=== PATIENT | male | born 1950 | race Caucasian/White ===

== ENCOUNTER → 2016-10-26 | Outpatient (CLI) | payer MEDICARE, OTHER ==
[~2016-10-26] MED LIST: ACET50TAOT PO; AMBI10TA PO; BALS75CA PO; CALC500T36 PO; CIAL5TAB PO; CIPR500T89 PO; COUM1TAB17 PO; COUM7.5T PO; PERC5TAB6 PO; TYLE325T5 PO; VITA-130 PO
== END ==
LOC: M LAB 09:05
PROVIDERS: ATTEND Urology
DX: C61 Malignant neoplasm of prostate (principal)

== ENCOUNTER → 2016-11-03 | Outpatient (CLI) | payer MEDICARE | LOC: M ADAMS 13:12 | PROVIDERS: ATTEND Urology | DX: N40.1 Benign prostatic hyperplasia with lower urinary tract symptoms (principal) ==

== ENCOUNTER → 2017-03-19 | Outpatient (CLI) | payer MEDICARE ==
[~2017-03-19] MED LIST changes: +CIPR-249 PO; -CIPR500T89 PO; +PERC5TAB12 PO; -PERC5TAB6 PO; -VITA-130 PO; +VITA500T PO
== END ==
LOC: M WUC 15:54
PROVIDERS: ATTEND Urology
DX: N40.1 Benign prostatic hyperplasia with lower urinary tract symptoms (principal)

== ENCOUNTER → 2017-10-19 | Outpatient (REF) | payer MEDICARE ==
[2017-10-19 20:09] LABS: PROSTATIC SPECIFIC AG MONITOR 0.23 NG/ML (< 4.0)
== END ==
LOC: M LABDRWAD 19:12
DX: C61 Malignant neoplasm of prostate (principal)
CPT/HCPCS: 84153

== ENCOUNTER → 2018-04-19 | Outpatient (REF) | payer MEDICARE ==
[2018-04-19 14:03] LABS: PROSTATIC SPECIFIC AG MONITOR 0.32 NG/ML (< 4.0)
== END ==
LOC: M LABDRWAD 12:55
DX: R97.20 Elevated prostate specific antigen [PSA] (principal)

== ENCOUNTER → 2018-04-19 | Outpatient (REF) | payer MEDICARE ==
[2018-04-19 13:55] LABS: BASO % 0.7 % (0.0-1.0); EOS # 0.2 10^3/uL (0.0-0.50); EOS % 3.6 % (0.0-3.0); HEMATOCRIT 44.4 % (42.0-52.0); HEMOGLOBIN 14.8 g/dl (13.5-17.5); IMMATURE GRANULOCYTE % 0.7 % (0-3.0); LYMPH # 1.2 10^3/uL (1.5-4.5); LYMPH % 26.5 % (24.0-44.0); MEAN CORPUSCULAR HEMOGLOBIN 30.9 pg (27.0-33.0); MEAN CORPUSCULAR HGB CONC 33.3 g/dl (32.0-36.5); MEAN CORPUSCULAR VOLUME 92.7 fl (80.0-96.0); MONO # 0.4 10^3/uL (0.0-0.8); NEUTROPHILS # 2.7 10^3/uL (1.8-7.7); NEUTROPHILS % 59.5 % (36.0-66.0); PLATELET COUNT, AUTOMATED 138 10^3/uL (150-450); RED BLOOD COUNT 4.79 10^6/uL (4.30-6.10); RED CELL DISTRIBUTION WIDTH 12.3 % (11.5-14.5); WHITE BLOOD COUNT 4.5 10^3/uL (4.0-10.0)
[2018-04-19 14:03] LABS: ALBUMIN 3.7 GM/DL (3.2-5.2); ALBUMIN/GLOBULIN RATIO 1.54 (1.00-1.93); ALKALINE PHOSPHATASE 47 U/L (45-117); ALT/SGPT 20 U/L (12-78); ANION GAP 6 MEQ/L (8-16); AST/SGOT 15 U/L (7-37); BILIRUBIN,TOTAL 0.6 MG/DL (0.2-1.0); BLOOD UREA NITROGEN 22 MG/DL (7-18); CALCIUM LEVEL 8.2 MG/DL (8.8-10.2); CARBON DIOXIDE LEVEL 30 MEQ/L (21-32); CHLORIDE LEVEL 109 MEQ/L (98-107); CHOLESTEROL LEVEL 185 MG/DL (<200); CHOLESTEROL RISK RATIO 3.135 (<5); GLOMERULAR FILTRATION RATE > 60.0 (>49); GLUCOSE, FASTING 88 MG/DL (70-100); HDL CHOLESTEROL 59 MG/DL (>40); LDL CHOLESTEROL 112 MG/DL (<100); NON-HDL-C 126 MG/DL; POTASSIUM SERUM 4.4 MEQ/L (3.5-5.1); SODIUM LEVEL 145 MEQ/L (136-145); TOTAL PROTEIN 6.1 GM/DL (6.4-8.2); TRIGLYCERIDES LEVEL 71 MG/DL (<150)
== END ==
LOC: M LABDRWAD 12:52
DX: Z00.00 Encounter for general adult medical examination without abnormal findings (principal); R97.20 Elevated prostate specific antigen [PSA]; Z51.81 Encounter for therapeutic drug level monitoring; Z79.899 Other long term (current) drug therapy
CPT/HCPCS: 80053

== ENCOUNTER 2018-05-31 07:51 | Day surgery (SDC) | payer MEDICARE ==
[2018-05-31] MEDS: NS 1,000 ML IV (06:30)
[2018-05-31] MEDS ORDERED: PROPOFOL 200 MG/20 ML VIAL As Ordered ×2 (08:06→08:36)
[2018-05-31] MEDS ORDERED: LIDOCAINE 2% INJ 100 MG/5 ML SDV (FOR ANES.) As Ordered (08:07)
== END 2018-05-31 09:26 | disposition home or self-care (01) ==
LOC: M OPP 07:51
DX: K63.5 Polyp of colon (principal); K64.0 First degree hemorrhoids; K57.30 Diverticulosis of large intestine without perforation or abscess without bleeding; Z88.0 Allergy status to penicillin; Z88.2 Allergy status to sulfonamides; Z86.19 Personal history of other infectious and parasitic diseases; Z98.890 Other specified postprocedural states; Z79.899 Other long term (current) drug therapy
CPT/HCPCS: 45380

== ENCOUNTER → 2018-12-16 | Outpatient (REF) | payer MEDICARE ==
[~2018-12-16] MED LIST changes: +ACET500T15 PO; -ACET50TAOT PO; +CALC12504 PO; -CALC500T36 PO; +FLUO1CRE4 TOP; +PROP10TA56 PO
== END ==
LOC: M LABDRWAD 13:54
PROVIDERS: ATTEND Urology
DX: Z85.46 Personal history of malignant neoplasm of prostate (principal)

== ENCOUNTER → 2019-06-12 | Outpatient (CLI) | payer MEDICARE ==
[~2019-06-12] MED LIST changes: -CALC12504 PO; +CALC500T61 PO
== END ==
LOC: M LAB 07:52
PROVIDERS: ATTEND Urology
DX: C61 Malignant neoplasm of prostate (principal)

== ENCOUNTER → 2020-01-02 | Outpatient (REF) | payer MEDICARE ==
[~2020-01-02] MED LIST changes: -COUM7.5T PO; +COUM7.5T6 PO; +VITA-243 PO; -VITA500T PO
== END ==
LOC: M SFHCADAM 13:11
PROVIDERS: ATTEND Urology
DX: C61 Malignant neoplasm of prostate (principal)

== ENCOUNTER → 2020-06-14 | Outpatient (CLI) | payer MEDICARE | LOC: M PLALAB 10:51 | PROVIDERS: ATTEND Urology | DX: C61 Malignant neoplasm of prostate (principal) ==

== ENCOUNTER → 2020-06-21 | Outpatient (CLI) | payer SELFPAY | LOC: M LABSMTC 13:14 | PROVIDERS: ATTEND Pediatrics | DX: Z20.828 Contact with and (suspected) exposure to other viral communicable diseases (principal) ==

== ENCOUNTER → 2021-02-25 | Outpatient (CLI) | payer MEDICARE | LOC: M PLALAB 14:11 | PROVIDERS: ATTEND Urology | DX: C61 Malignant neoplasm of prostate (principal) ==

== ENCOUNTER → 2021-04-01 | Outpatient (CLI) | payer MEDICARE ==
--- NOTE | 2021-04-01 12:18 | REP ---
INDICATION: LT HIP PRESENCE PAINFUL PROSTHESIS/TENDONITIS BURS. COMPARISON: Comparison radiographs are from July 23, 2015 peer TECHNIQUE: . axial, coronal and sagittal imaging planes utilized. T1 and T2 weighted scans are included. The study includes coronal T1 and fat sat T2 images of both hips. Soft worse metallic field artifact suppression was utilized. Smaller [id number] T2 images were performed without fat saturation to help minimize the artifact as well. FINDINGS: Despite the above measures, there is considerable metallic field susceptibility artifact emanating from the metallic components of the left hip prosthesis. This obscures the immediately adjacent tissue visualization to some degree on all sequences. I do not see evidence of a periarticular fluid collection or mass. The visualized bony pelvic ring shows normal cortical and medullary T1-T2 weighted signal. No sacral lesion is seen. No evidence of a stress fracture in their visualized bony structures. SI joints and symphysis pubis are normally aligned. The right hip shows minimal acetabular spurring superiorly. No right hip effusion is seen. No pelvic mass or adenopathy is seen. Hamstring tendon insertions are unremarkable. IMPRESSION: There is considerable metallic artifact emanating from the left hip prosthesis. No acute abnormality seen. <Electronically signed by Aaron Pedro > 04/01/21 [id number]
== END ==
LOC: M PLAIMG 11:00
PROVIDERS: ATTEND Orthopaedic Surgery
DX: Z96.642 Presence of left artificial hip joint (principal)

== ENCOUNTER → 2021-04-17 | Outpatient (CLI) | payer MEDICARE ==
--- NOTE | 2021-04-17 14:54 | REP ---
INDICATION: PRESENCE OF LT HIP. COMPARISON: None. TECHNIQUE/RADIOTRACER AND DOSE: After the intravenous administration 22 mCi of technetium 99 M MDP a triple phase bone scan with attention to the left hip was obtained FINDINGS: The flow portion of the exam shows no evidence of abnormal radionuclide accumulation. Blood pool imaging shows normal photopenia due to a left hip prosthesis. Delayed imaging shows slight increased accumulation of the radiotracer around the left hip prosthesis. IMPRESSION: Nonspecific findings. There is no evidence of loosening <Electronically signed by Luis Becerra > 04/17/21 [id number]
== END ==
LOC: M RAD 08:44
PROVIDERS: ATTEND Orthopaedic Surgery
DX: Z96.642 Presence of left artificial hip joint (principal)
CPT/HCPCS: 78315; A9503

== ENCOUNTER → 2021-04-22 | Outpatient (CLI) | payer MEDICARE ==
[2021-04-22 17:34] LABS: BASO % 0.8 % (0.0-1.0); EOS # 0.1 10^3/uL (0.0-0.5); EOS % 2.7 % (0.0-3.0); HEMATOCRIT 44.3 % (42.0-52.0); HEMOGLOBIN 14.8 g/dl (13.5-17.5); LYMPH # 1.2 10^3/uL (1.5-5.0); MEAN CORPUSCULAR HEMOGLOBIN 31.5 pg (27.0-33.0); MEAN CORPUSCULAR HGB CONC 33.4 g/dl (32.0-36.5); MEAN CORPUSCULAR VOLUME 94.3 fl (80.0-96.0); MONO # 0.6 10^3/uL (0.0-0.8); MONO % 10.8 % (2.0-8.0); NEUTROPHILS # 3.2 10^3/uL (1.5-8.5); NEUTROPHILS % 62.3 % (36.0-66.0); PLATELET COUNT, AUTOMATED 141 10^3/uL (150-450); WHITE BLOOD COUNT 5.2 10^3/uL (4.0-10.0)
[2021-04-22 18:46] LABS: ERYTHROCYTE SEDIMENTATION RATE 2 mm/hr (0-20)
== END ==
LOC: M PLALAB 15:02
PROVIDERS: ATTEND Orthopaedic Surgery
DX: Z96.642 Presence of left artificial hip joint (principal)

== ENCOUNTER → 2021-06-09 | Outpatient (CLI) | payer MEDICARE | LOC: M PLALAB 13:08 | PROVIDERS: ATTEND Urology | DX: C61 Malignant neoplasm of prostate (principal) ==

== ENCOUNTER → 2021-11-28 | Outpatient (REF) | payer MEDICARE | LOC: M LAB REF 12:49 | PROVIDERS: ATTEND Internal Medicine Gastroenterology | DX: R19.7 Diarrhea, unspecified (principal) ==

== ENCOUNTER → 2021-12-10 | Outpatient (CLI) | payer MEDICARE | LOC: M PLALAB 14:12 | PROVIDERS: ATTEND Urology | DX: C61 Malignant neoplasm of prostate (principal) ==

== ENCOUNTER → 2022-01-15 | Outpatient (REF) | payer MEDICARE | LOC: M LAB REF 13:13 | PROVIDERS: ATTEND Internal Medicine Gastroenterology | DX: R19.7 Diarrhea, unspecified (principal) ==

== ENCOUNTER → 2022-01-26 | Outpatient (CLI) | payer MEDICARE ==
[~2022-01-26] MED LIST changes: +PRED1TABL PO
== END ==
LOC: M LABSMTC 09:50
PROVIDERS: ATTEND Anesthesiology
DX: Z01.812 Encounter for preprocedural laboratory examination (principal); Z20.822 Contact with and (suspected) exposure to COVID-19

== ENCOUNTER 2022-01-30 08:44 | Day surgery (SDC) | payer MEDICARE ==
[~2022-01-30] VITALS: Ht 180.3 cm; Wt 73.0 kg
[~2022-01-30 08:44] MED LIST changes: +NS 1,000 ML IV ONE
[2022-01-30] MEDS ORDERED: propofoL 200 MG/20 ML VIAL As Ordered ONE ×2 (09:38→10:04)
[2022-01-30 10:40] VITALS: BP 114/65
== END 2022-01-30 10:55 | disposition home or self-care (01) ==
LOC: M OPP 08:44
PROVIDERS: ATTEND Internal Medicine Gastroenterology
DX: K63.5 Polyp of colon (principal); K57.30 Diverticulosis of large intestine without perforation or abscess without bleeding; K64.0 First degree hemorrhoids; K51.90 Ulcerative colitis, unspecified, without complications; Z85.46 Personal history of malignant neoplasm of prostate; Z87.891 Personal history of nicotine dependence; Z79.1 Long term (current) use of non-steroidal anti-inflammatories (NSAID); Z79.51 Long term (current) use of inhaled steroids; Z79.52 Long term (current) use of systemic steroids; Z79.84 Long term (current) use of oral hypoglycemic drugs; Z88.0 Allergy status to penicillin; Z88.1 Allergy status to other antibiotic agents

== ENCOUNTER → 2022-04-17 | Outpatient (REF) | payer MEDICARE ==
[~2022-04-17] MED LIST changes: -NS 1,000 ML IV ONE
== END ==
LOC: M LAB REF 17:59
PROVIDERS: ATTEND Internal Medicine Gastroenterology
DX: K51.90 Ulcerative colitis, unspecified, without complications (principal)

== ENCOUNTER → 2022-11-12 | Outpatient (CLI) | payer MEDICARE | LOC: M LAB 16:28 | PROVIDERS: ATTEND Urology | DX: C61 Malignant neoplasm of prostate (principal) ==

== ENCOUNTER → 2023-03-04 | Outpatient (CLI) | payer MEDICARE | LOC: M LAB 08:01 | PROVIDERS: ATTEND Urology | DX: C61 Malignant neoplasm of prostate (principal) ==

== ENCOUNTER → 2023-03-04 | Outpatient (CLI) | payer MEDICARE ==
[2023-03-04 08:30] LABS: BASO % 0.9 % (0.0-1.0); EOS # 0.1 10^3/uL (0.0-0.5); EOS % 2.7 % (0.0-3.0); HEMATOCRIT 46.9 % (42.0-52.0); HEMOGLOBIN 15.6 g/dl (13.5-17.5); LYMPH # 1.2 10^3/uL (1.5-5.0); MEAN CORPUSCULAR HEMOGLOBIN 30.8 pg (27.0-33.0); MEAN CORPUSCULAR HGB CONC 33.3 g/dl (32.0-36.5); MEAN CORPUSCULAR VOLUME 92.7 fl (80.0-96.0); MONO # 0.5 10^3/uL (0.0-0.8); MONO % 11.3 % (2.0-8.0); NEUTROPHILS # 2.6 10^3/uL (1.5-8.5); NEUTROPHILS % 58.4 % (36.0-66.0); PLATELET COUNT, AUTOMATED 130 10^3/uL (150-450); RED BLOOD COUNT 5.06 10^6/uL (4.30-6.10); WHITE BLOOD COUNT 4.4 10^3/uL (4.0-10.0)
[2023-03-04 08:53] LABS: ALKALINE PHOSPHATASE 52 U/L (46-116); ALT/SGPT 16 U/L (7.0-40); AST/SGOT 8 U/L (<34); BILIRUBIN,TOTAL 0.9 MG/DL (0.3-1.2); BLOOD UREA NITROGEN 23 MG/DL (9-23); CALCIUM LEVEL 9.4 MG/DL (8.3-10.6); CARBON DIOXIDE LEVEL 29 MMOL/L (20-31); CHLORIDE LEVEL 109 MMOL/L (98-107); CHOLESTEROL LEVEL 208 MG/DL (<200); GLOMERULAR FILTRATION RATE > 60.0 (>42); GLUCOSE, FASTING 101 MG/DL (74-106); LDL CHOLESTEROL 125.2 MG/DL (<100); SODIUM LEVEL 143 MMOL/L (136-145); TOTAL PROTEIN 6.4 G/DL (5.7-8.2); TRIGLYCERIDES LEVEL 99 MG/DL (<150)
== END ==
LOC: M LAB 07:57
PROVIDERS: ATTEND Family Medicine
DX: Z00.00 Encounter for general adult medical examination without abnormal findings (principal); C61 Malignant neoplasm of prostate

== ENCOUNTER → 2023-12-06 | Outpatient (CLI) | payer MEDICARE | LOC: M LAB 07:03 | PROVIDERS: ATTEND Urology | DX: C61 Malignant neoplasm of prostate (principal) ==

== ENCOUNTER → 2024-02-11 | Outpatient (CLI) | payer MEDICARE | LOC: M RAD 14:28 | PROVIDERS: ATTEND Family Medicine | DX: M54.31 Sciatica, right side (principal) ==

== ENCOUNTER → 2024-04-11 | Outpatient (CLI) | payer MEDICARE | LOC: M LAB 15:49 | PROVIDERS: ATTEND Urology | DX: C61 Malignant neoplasm of prostate (principal) ==

== ENCOUNTER → 2025-04-10 | Outpatient (CLI) | payer MEDICARE ==
[~2025-04-10] MED LIST changes: -AMBI10TA PO; +FLUO0.1C7 TOP; -FLUO1CRE4 TOP; +PRED-1142 PO; -PRED1TABL PO; +ZOLP-533 PO
== END ==
LOC: M LAB 13:25
PROVIDERS: ATTEND Urology
DX: C61 Malignant neoplasm of prostate (principal)